=== PATIENT | male | born 1970 | race Caucasian/White ===

== ENCOUNTER 2017-05-09 15:34 | Day surgery (SDC) | payer BC ==
[~2017-05-09] VITALS: Ht 182.9 cm; Wt 82.7 kg
[2017-05-09 16:18] VITALS: Ht 182.9 cm; Wt 82.7 kg
[2017-05-09 16:51] VITALS: BP 115/62; PULSE 58; RESP 21
[2017-05-09 17:22] VITALS: BP 103/63; PULSE 52; RESP 12
[2017-05-09] MEDS ORDERED: FENTAnyl 50 MCG/ML VIAL ONE (17:26)
[2017-05-09] MEDS ORDERED: MIDAZOLAM 1 MG/ML 2 ML INJ ONE ×2 (17:26)
[2017-05-09 17:50] VITALS: BP 112/53; PULSE 64; RESP 19
--- NOTE | 2017-05-09 23:09 | GILP ---
DATE OF PROCEDURE: NAME OF PROCEDURES: 1. Esophagogastroduodenoscopy and biopsy. 2. Colonoscopy. SURGEON: Moisés Sauer MD PREOPERATIVE DIAGNOSES: 1. Upper abdominal pain. 2. Chronic heartburn. 3. Screening colonoscopy. POSTOPERATIVE DIAGNOSES: 1. Hiatal hernia. 2. Gastroesophageal reflux disease. 3. Gastritis with erosions. 4. Gastric mucosal biopsies were taken for Helicobacter pylori test. 5. Colonoscopy all the way to the cecum. 6. Internal and external hemorrhoids. 7. No colon neoplasm was identified. INDICATION FOR THE PROCEDURES: Mr. Lita Ventura is a 47-year-old male patient who had upper abdo gamal pain and chronic heartburn not responding to therapy. The patient also needed screening colon oscopy. The procedures and possible complications were well explained to the patient. He understood and con sented to the procedures. DESCRIPTION OF PROCEDURE: Under the influence of fentanyl and Versed, the gastroscope was carefully introduced into the esophagus. Under direct vision, it was advanced to stomach and through the pyl orus into duodenal bulb and descending duodenum. FINDINGS: ESOPHAGUS: The patient had hiatal hernia and gastroesophageal reflux disease. STOMACH: He had gastritis with erosions. Gastric mucosal biopsies were taken for H. pylori test. DUODENUM: Normal. The colonoscope was carefully introduced in the rectum, and under direct vision, it was advanced all the way to the cecum. FINDINGS: The patient had internal and external hemorrhoids. No colon neoplasm was identified. The patient tolerated the procedures very well. There was no complication from the procedures. At the end of the procedures, he was awake with stable vital signs, and he was discharged home to care of his family. IMPRESSION: Please see postoperative diagnoses. PLAN: 1. Nexium 24HR p.o. q.a.m. 2. Await H. pylori test report. 3. The patient was advised high-fiber diet for constipation. Dictated By: MOISÉS WORLEY/TAY Conf#: [id number] DID#: [id number]
--- NOTE | 2017-05-13 07:36 | CONS ---
DATE OF ADMISSION: 05/09/2017 DATE OF CONSULTATION: TYPE OF CONSULTATION: EGD and colonoscopy. Dear Dr. Milan: I thank you very much for this kind referral. The patient is a 47-year-old male patient who has bee n referred to me for further evaluation of abdominal pain and chronic heartburn, not responding to t herapy. Patient has pain in the epigastric region as well as the left lower quadrant. There is no past history of peptic ulcer disease. He is not taking any nonsteroidal anti-inflammatory agents. His appetite has been good and there is no history of significant weight loss. There is no history of gallstones. He does not have any fever, chills or jaundice. There is no history of liver diseas e. The patient also complains of change in the bowel habit with constipation. There is no past his tory of colon neoplasm. The patient never had screening colonoscopy. He had abdominal CT scan and according to him it was negative. He is not a hypertensive or diabetic. He does not have any heart disease or lung problem. There is no history of kidney disease. SOCIAL HISTORY: He is a nonsmoker. He does not abuse alcohol. He is status post appendectomy. FAMILY HISTORY: There is no family history of gastrointestinal tract neoplasm. ALLERGIES: THERE IS NO HISTORY OF SIGNIFICANT DRUG ALLERGY. MEDICATIONS: None. PHYSICAL EXAMINATION: GENERAL: He is 5 feet 11 inches tall and he weighs 180 pounds. HEART: Examination of the heart reveals normal first and second heart sounds. LUNGS: Clear. ABDOMEN: Soft without any distention. Liver and spleen are not palpable. There are no masses. Th ere is no focal tenderness. Normal bowel sounds are heard. CENTRAL NERVOUS SYSTEM: Does not reveal any focal neurological deficit. IMPRESSION: 1. Upper abdominal pain and chronic heartburn, not responding to therapy. 2. Change in the bowel habit with constipation. 3. Left lower quadrant abdominal pain. 4. The patient never had screening colonoscopy. 5. The patient had abdominal CT scan done and he states it was negative. 6. Status post appendectomy. PLAN: Endoscopy and colonoscopy for further evaluation. The procedures and possible complications are well explained to the patient. He understands and con sents to the procedure. I thank you once again. With warmest personal regards, Dictated By: DAVI WORLEY/TAY Conf#: [id number] [facility]#: [id number]
== END 2017-05-09 18:29 | disposition home or self-care (01) ==
LOC: GIL 15:34
PROVIDERS: ATTEND Internal Medicine Gastroenterology
DX: R19.4 Change in bowel habit (principal); K44.9 Diaphragmatic hernia without obstruction or gangrene; K21.9 Gastro-esophageal reflux disease without esophagitis; K29.60 Other gastritis without bleeding; K64.8 Other hemorrhoids; K64.4 Residual hemorrhoidal skin tags
CPT/HCPCS: 43239; 87081; J2250; J3010; Z7610